=== PATIENT | female | born 2000 | race Native Hawaiian/Other Pacific Islander ===

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

== ENCOUNTER 2018-04-27 19:31 | Emergency (ER) | payer OTHER ==
[~2018-04-27] VITALS: Ht 162.6 cm; Wt 62.1 kg
[2018-04-27 20:18] LABS: PLATELET COUNT 217 K/uL (152-353)
[2018-04-27 20:21] LABS: POTASSIUM 3.1 mmol/L (3.6-5.2)
[2018-04-27 21:08] VITALS: BP 131/78; TEMP 98.2
== END 2018-04-27 21:11 | disposition home or self-care (01) ==
LOC: ED 19:31
PROVIDERS: Family Medicine
DX: R31.9 Hematuria, unspecified (principal); M54.5 Low back pain; Z32.01 Encounter for pregnancy test, result positive; X50.9XXA Other and unspecified overexertion or strenuous movements or postures, initial encounter; Y92.89 Other specified places as the place of occurrence of the external cause
CPT/HCPCS: 36415; 80053; 81000; 81025; 85027; 96365; 96374; 99284; J1885

== ENCOUNTER 2018-09-01 20:50 | Emergency (ER) | payer OTHER ==
[~2018-09-01] VITALS: Ht 162.6 cm; Wt 72.6 kg
[2018-09-01 21:49] VITALS: BP 132/94; TEMP 97.7
== END 2018-09-01 21:49 | disposition home or self-care (01) ==
LOC: ED 20:50
DX: L02.01 Cutaneous abscess of face (principal)
CPT/HCPCS: 96372; 99283; J0696

== ENCOUNTER 2018-12-22 11:25 | Emergency (ER) | payer OTHER ==
[~2018-12-22] VITALS: Ht 162.6 cm; Wt 68.0 kg
[2018-12-22 12:30] VITALS: BP 118/65; TEMP 97.9
== END 2018-12-22 12:30 | disposition home or self-care (01) ==
LOC: ED 11:25
DX: L02.211 Cutaneous abscess of abdominal wall (principal); S30.861A Insect bite (nonvenomous) of abdominal wall, initial encounter
CPT/HCPCS: 96372; 99283; J1885

== ENCOUNTER 2020-06-30 18:56 | Emergency (ER) | payer OTHER ==
[~2020-06-30] VITALS: Ht 162.6 cm; Wt 77.1 kg
[2020-06-30 19:10] VITALS: BP 127/88; TEMP 97.8
[2020-06-30] MEDS ORDERED: PRENATAL1 T10 PO (19:39)
== END 2020-06-30 20:00 | disposition home or self-care (01) ==
LOC: ED 18:56
DX: O62.0 Primary inadequate contractions (principal); Z3A.30 30 weeks gestation of pregnancy
CPT/HCPCS: 99284

== ENCOUNTER 2021-09-01 08:11 | Emergency (ER) | payer OTHER ==
[~2021-09-01] VITALS: Ht 162.6 cm; Wt 77.1 kg
[~2021-09-01 08:11] MED LIST changes: +PRENATAL1 T10 PO
[2021-09-01 08:18] VITALS: BP 123/87; TEMP 98.8
== END 2021-09-01 08:52 | disposition home or self-care (01) ==
LOC: ED 08:11
DX: S50.862A Insect bite (nonvenomous) of left forearm, initial encounter (principal); L03.114 Cellulitis of left upper limb; W57.XXXA Bitten or stung by nonvenomous insect and other nonvenomous arthropods, initial encounter; Y92.89 Other specified places as the place of occurrence of the external cause
CPT/HCPCS: 99282

== ENCOUNTER 2022-06-28 09:19 | Emergency (ER) | payer OTHER ==
[~2022-06-28] VITALS: Ht 162.6 cm; Wt 77.1 kg
[2022-06-28 09:24] VITALS: TEMP 98.6
[2022-06-28 10:40] VITALS: BP 125/85
== END 2022-06-28 11:14 | disposition home or self-care (01) ==
LOC: ED 09:19
DX: S90.32XA Contusion of left foot, initial encounter (principal); W01.0XXA Fall on same level from slipping, tripping and stumbling without subsequent striking against object, initial encounter
CPT/HCPCS: 81025; 96372; 99283; J1885